=== PATIENT | male | born 1965 | race Caucasian/White ===

== ENCOUNTER 2024-01-23 08:54 | Emergency (ER) | payer SELFPAY ==
[~2024-01-23] VITALS: Ht 157.5 cm; Wt 106.6 kg
[2024-01-23 08:57] VITALS: BP 123/76; PULSE 84; RESP 20; TEMP 97.2; O2SAT 96
[2024-01-23] MEDS ORDERED: ALBU0.0912 IH (09:19)
[2024-01-23] MEDS ORDERED: PRON INH (09:19)
[2024-01-23] MEDS ORDERED: PRED20TA5 PO (09:19)
[2024-01-23] MEDS: KETOROLAC 60 MG/2 ML VIAL IM ONE (09:20)
[2024-01-23 09:56] VITALS: BP 123/76; PULSE 84; RESP 20; TEMP 97.2; O2SAT 96
== END 2024-01-23 09:56 | disposition home or self-care (01) ==
LOC: MED 08:54
DX: R05.9 Cough, unspecified (principal); R07.89 Other chest pain; R06.02 Shortness of breath; R03.0 Elevated blood-pressure reading, without diagnosis of hypertension; J45.909 Unspecified asthma, uncomplicated; Z98.890 Other specified postprocedural states
CPT/HCPCS: 96372; 99283; J1885

== ENCOUNTER 2024-04-28 12:08 | Inpatient (IN) | payer OTHER ==
[2024-04-28] VITALS (8 sets, daily range): BP systolic 117–163; BP diastolic 63–98; PULSE 78–103; RESP 20–28; TEMP 96.1–97.7; O2SAT 86–97
[~2024-04-28] VITALS: Ht 157.5 cm; Wt 108.9 kg
[~2024-04-28 12:08] MED LIST: ALBU0.0912 IH; PRED20TA5 PO; PRON INH
[2024-04-28] MEDS: ALBUTEROL SULFATE/IPRATROPIU 3 ML SOL IH ONE (12:26)
[2024-04-28 13:05] LABS: BASOPHILS % (AUTO) 0.5 % (0.0-2.0); EOSINOPHILS # (AUTO) 0.1 K/uL (0-0.4); EOSINOPHILS % (AUTO) 1.3 % (0.0-4.0); HEMATOCRIT 42.6 % (36-52); LYMPHOCYTES % (AUTO) 12.2 % (20.5-51.1); MEAN CORPUSCULAR HEMOGLOBIN 29 pg (27-31); MEAN CORPUSCULAR HGB CONC 33 g/dL (33-37); MEAN CORPUSCULAR VOLUME 86.8 fL (80-94); MONOCYTES # (AUTO) 0.4 K/uL (0.8-1.0); MONOCYTES % (AUTO) 5.2 % (1.7-9.3); NEUTROPHILS # (AUTO) 6.8 K/uL (1.8-7.7); NEUTROPHILS % (AUTO) 80.8 % (42.2-75.2); PLATELET COUNT (AUTO) 219 K/uL (140-450); RED BLOOD CELL COUNT(AUTO) 4.92 MIL/uL (4.20-6.10); RED CELL DISTRIBUTION WIDTH 16.9 % (11.6-13.7); WHITE BLOOD COUNT (AUTO) 8.4 K/uL (4.8-10.8)
[2024-04-28 13:46] LABS: INR 1.32 (0.8-1.2); PARTIAL THROMBOPLASTIN TIME 24.7 secs (22-35.6); PROTHROMBIN TIME 13.6 secs (10.8-13.4)
[2024-04-28 13:47] LABS: ANION GAP 11.3 (8-16); CALCIUM 8.9 mg/dL (8.5-10.1); POTASSIUM 4.3 mmol/L (3.5-5.1)
[2024-04-28 13:59] LABS: FLU A ANTIGEN negative (NEGATIVE); FLU B ANTIGEN negative (NEGATIVE)
[2024-04-28] MEDS: NITROGLYCERIN 2% 1 GM PKT TP ONE (15:00)
[2024-04-28] MEDS: FUROSEMIDE 40 MG/4 ML VIAL IVP ONE (15:00)
[2024-04-28] MEDS ORDERED: HYDROcodone/APAP 5/325 MG 1 TAB TAB PO PRN (15:15)
[2024-04-28] MEDS ORDERED: ACETAMINOPHEN 325 MG TAB PO PRN (15:15)
[2024-04-28] MEDS ORDERED: ONDANSETRON 4 MG/2 ML VIAL IVP PRN (15:15)
[2024-04-28] MEDS ORDERED: MORPHINE SULFATE 4 MG/ML SYR IVP PRN (15:15)
[2024-04-28] MEDS ORDERED: cefTRIAXone 1,000 MG VIAL ONE (16:56)
[2024-04-28 17:11] LABS: FLU A ANTIGEN negative (NEGATIVE); FLU B ANTIGEN NEGATIVE (NEGATIVE)
[2024-04-28] MEDS ORDERED: AZITHROMYCIN 500 MG INJ VIAL IV ONE (17:11)
[2024-04-28] MEDS: AZITHROMYCIN 500 MG in DEXTROSE 5% 250 ML IV SCH (17:23)
[2024-04-28] MEDS: ALBUTEROL SULFATE/IPRATROPIU 3 ML SOL IH SCH (19:00)
[2024-04-28] MEDS: methylPREDNISolone SS 40 MG/ML VIAL IVP SCH (20:23)
[2024-04-28] MEDS: FUROSEMIDE 40 MG/4 ML VIAL IVP SCH (20:23)
[2024-04-29] VITALS (11 sets, daily range): BP systolic 113–126; BP diastolic 60–76; PULSE 74–90; RESP 19–23; TEMP 97.2–98.1; O2SAT 9–99
[2024-04-29 07:03] LABS: BASOPHILS % (AUTO) 0.1 % (0.0-2.0); HEMATOCRIT 40.5 % (36-52); HEMOGLOBIN 13.5 g/dL (12.0-18.0); LYMPHOCYTES # (AUTO) 0.3 K/uL (2.0-11.5); LYMPHOCYTES % (AUTO) 4.4 % (20.5-51.1); MEAN CORPUSCULAR HEMOGLOBIN 29 pg (27-31); MEAN CORPUSCULAR HGB CONC 33 g/dL (33-37); MEAN CORPUSCULAR VOLUME 85.8 fL (80-94); MONOCYTES # (AUTO) 0.1 K/uL (0.8-1.0); MONOCYTES % (AUTO) 0.9 % (1.7-9.3); NEUTROPHILS # (AUTO) 6.6 K/uL (1.8-7.7); NEUTROPHILS % (AUTO) 94.6 % (42.2-75.2); PLATELET COUNT (AUTO) 200 K/uL (140-450); RED BLOOD CELL COUNT(AUTO) 4.72 MIL/uL (4.20-6.10); RED CELL DISTRIBUTION WIDTH 16.8 % (11.6-13.7); WHITE BLOOD COUNT (AUTO) 6.9 K/uL (4.8-10.8)
[2024-04-29 07:24] LABS: ANION GAP 13.6 (8-16); CALCIUM 9.2 mg/dL (8.5-10.1); CARBON DIOXIDE 26.3 mmol/L (21-32); CREATININE 1.1 mg/dL (0.6-1.3); POTASSIUM 3.9 mmol/L (3.5-5.1)
[2024-04-30] VITALS (10 sets, daily range): BP systolic 102–113; BP diastolic 50–68; PULSE 70–110; RESP 16–21; TEMP 96.7–98; O2SAT 94–100
[2024-04-30 06:52] LABS: HEMATOCRIT 40.4 % (36-52); HEMOGLOBIN 13.1 g/dL (12.0-18.0); LYMPHOCYTES # (AUTO) 0.4 K/uL (2.0-11.5); LYMPHOCYTES % (AUTO) 2.5 % (20.5-51.1); MEAN CORPUSCULAR HEMOGLOBIN 28 pg (27-31); MEAN CORPUSCULAR HGB CONC 32 g/dL (33-37); MEAN CORPUSCULAR VOLUME 86.4 fL (80-94); MONOCYTES # (AUTO) 0.2 K/uL (0.8-1.0); MONOCYTES % (AUTO) 1.5 % (1.7-9.3); NEUTROPHILS # (AUTO) 14.5 K/uL (1.8-7.7); PLATELET COUNT (AUTO) 187 K/uL (140-450); RED BLOOD CELL COUNT(AUTO) 4.68 MIL/uL (4.20-6.10); RED CELL DISTRIBUTION WIDTH 16.5 % (11.6-13.7); WHITE BLOOD COUNT (AUTO) 15.1 K/uL (4.8-10.8)
[2024-04-30 06:59] LABS: ANION GAP 11.8 (8-16); CARBON DIOXIDE 30.2 mmol/L (21-32); CREATININE 1.2 mg/dL (0.6-1.3)
[2024-05-01 01:07] VITALS: PULSE 76; RESP 16; O2SAT 94
[2024-05-01 04:00] VITALS: BP 106/57; PULSE 78; RESP 18; TEMP 98.4; O2SAT 94
[2024-05-01 05:22] LABS: HEMATOCRIT 39.4 % (36-52); HEMOGLOBIN 12.8 g/dL (12.0-18.0); LYMPHOCYTES # (AUTO) 0.2 K/uL (2.0-11.5); LYMPHOCYTES % (AUTO) 1.4 % (20.5-51.1); MEAN CORPUSCULAR HEMOGLOBIN 28 pg (27-31); MEAN CORPUSCULAR HGB CONC 33 g/dL (33-37); MEAN CORPUSCULAR VOLUME 85.9 fL (80-94); MONOCYTES # (AUTO) 0.3 K/uL (0.8-1.0); NEUTROPHILS # (AUTO) 13.6 K/uL (1.8-7.7); NEUTROPHILS % (AUTO) 96.6 % (42.2-75.2); PLATELET COUNT (AUTO) 177 K/uL (140-450); RED BLOOD CELL COUNT(AUTO) 4.59 MIL/uL (4.20-6.10); RED CELL DISTRIBUTION WIDTH 16.6 % (11.6-13.7); WHITE BLOOD COUNT (AUTO) 14.1 K/uL (4.8-10.8)
[2024-05-01 06:24] LABS: ANION GAP 11.2 (8-16); CALCIUM 8.6 mg/dL (8.5-10.1); CARBON DIOXIDE 30.3 mmol/L (21-32); CREATININE 1.1 mg/dL (0.6-1.3); POTASSIUM 3.5 mmol/L (3.5-5.1)
[2024-05-01 08:00] VITALS: BP 118/57; PULSE 81; RESP 18; TEMP 98; O2SAT 94
[2024-05-01] MEDS ORDERED: POTA10TA81 PO (12:09)
[2024-05-01] MEDS ORDERED: CEFD300C3 PO (12:09)
[2024-05-01] MEDS ORDERED: FURO40TA9 PO (12:09)
[2024-05-01] MEDS ORDERED: PRED50TA2 PO (12:10)
[2024-05-01 12:13] VITALS: BP 118/57; PULSE 81; RESP 18; TEMP 98
[2024-05-01 13:22] VITALS: O2SAT 92
== END 2024-05-01 14:00 | disposition home or self-care (01) | DRG 291 ==
LOC: MED 12:08 → MTU 15:15
PROVIDERS: ADMIT Student in an Organized Health Care Education/Training Program; ATTEND Student in an Organized Health Care Education/Training Program
DX: I11.0 Hypertensive heart disease with heart failure (principal); I50.23 Acute on chronic systolic (congestive) heart failure; J96.01 Acute respiratory failure with hypoxia; J45.901 Unspecified asthma with (acute) exacerbation; Z68.41 Body mass index [BMI] 40.0-44.9, adult; Z20.822 Contact with and (suspected) exposure to COVID-19; E66.9 Obesity, unspecified; Z79.51 Long term (current) use of inhaled steroids; Z79.899 Other long term (current) drug therapy
CPT/HCPCS: 36415; 71045; 76700; 80048; 82948; 83735; 83880; 84484; 85025; 85610; 85730; 87081; 93005; 94640; 96374; 96375; 99291; J0456; J0696; J1644; J1940; J2920; J7060; Q0092